=== PATIENT | male | born 1925 | race Caucasian/White ===

== ENCOUNTER 2016-06-13 17:41 | Emergency (ER) | payer MEDICARE, MEDICAID ==
[~2016-06-13] VITALS: Ht 170.2 cm; Wt 77.3 kg
[2016-06-13 17:46] VITALS: Ht 170.2 cm; Wt 77.3 kg
[2016-06-13 17:52] VITALS: TEMP 97.9
[2016-06-13] MEDS ORDERED: CLON0.5T4 PO (18:12)
[2016-06-13] MEDS ORDERED: NIT4 SL (18:12)
[2016-06-13] MEDS ORDERED: FURO20TA3 PO (18:13)
[2016-06-13] MEDS ORDERED: COLC0.6T6 PO (18:13)
[2016-06-13] MEDS ORDERED: DICL100G37 TOP (18:14)
[2016-06-13] MEDS ORDERED: TIMO5DRO30 BOTH EYES (18:14)
[2016-06-13] MEDS ORDERED: CLOP75TA4 PO (18:15)
[2016-06-13] MEDS ORDERED: TRAM50TA2 PO (18:15)
[2016-06-13] MEDS ORDERED: TAMS0.4C2 PO (18:15)
[2016-06-13] MEDS ORDERED: CELE200C PO (18:16)
[2016-06-13] MEDS ORDERED: LIDO700A6 TP (18:16)
[2016-06-13] MEDS ORDERED: VALS80TA2 PO (18:17)
[2016-06-13] MEDS ORDERED: DUTA0.5C PO (18:17)
[2016-06-13] MEDS ORDERED: ESOM40CA PO (18:17)
[2016-06-13] MEDS ORDERED: ROSU5TAB5 PO (18:18)
[2016-06-13] MEDS ORDERED: SOLI5TAB5 PO (18:18)
[2016-06-13] MEDS ORDERED: RANO500T2 PO (18:18)
[2016-06-13] MEDS ORDERED: MEMA7CAP PO (18:19)
[2016-06-13] MEDS ORDERED: LINA145C PO (18:19)
[2016-06-13] MEDS ORDERED: VORT20TA PO (18:19)
[2016-06-13] MEDS ORDERED: OLOP2.5D5 OP (18:20)
[2016-06-13] MEDS ORDERED: IBUPROFEN 600 MG TAB PO ONE (18:30)
[2016-06-13] MEDS ORDERED: DIPHTH/TET/ACEL PERTUSS (ADULT) 0.5 ML VIAL IM* ONE (18:30)
[2016-06-13] MEDS ORDERED: NEOMYC/POLYMYX/BACIT 30 GM OINT TOP ONE (18:30)
--- NOTE | 2016-06-13 18:52 | RADRPT ---
PROCEDURE: CT brain without contrast CLINICAL INDICATION: Post traumatic headaches. Possible intracranial hemorrhage TECHNIQUE: A CT of the brain was performed utilizing axial sections from the skull base through th e vertex without contrast. Sagittal and coronal images were also reformatted. The exam CTDIvol = 44. 81 mGy and DLP = 720.23 mGy-cm. COMPARISON: None available FINDINGS: No acute intracranial hemorrhage is identified. There is no mass effect or midline shift. No extra -axial fluid collection is seen. The ventricles and sulci are within normal limits for size and con figuration given the the patient's provided age of 89 years with generalized associated age appropri ate tissue loss. The density of the brain is within normal limits. Rausch-white differentiation is p reserved. Broad-based frontal scalp hematoma is present. The osseous structures are unremarkable. The mastoi d air cells and visualized paranasal sinuses are clear. RPTAT:HJJR IMPRESSION: 1. Broad-based frontal scalp hematoma without associated fracture or acute intracranial abnormality. 2. Generalized age-appropriate cerebral tissue loss. Physician Arelis Date Time Electronically viewed and signed by Physician Arelis on 06/13/2016 18:52 /
--- NOTE | 2016-06-13 19:18 | RADRPT ---
PROCEDURE: XR Chest. CLINICAL INDICATION: Trauma. Chest pain. TECHNIQUE: Single frontal view. COMPARISON: None. FINDINGS: The lungs are clear. The heart size is normal. There is no pleural effusion. There is no pneumothorax. IMPRESSION: 1. Normal chest radiograph. RPTAT: QQ .Octavio Gresham MD, MD Date Time Electronically viewed and signed by .Octavio Gresham MD, on 06/13/2016 19:17 .R/
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
[2016-06-13] MEDS ORDERED: IBUP-1542 PO (19:23)
[2016-06-13 19:31] VITALS: BP 147/73; PULSE 66; RESP 16
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
== END 2016-06-13 20:20 | disposition home or self-care (01) ==
LOC: E/R 17:41
DX: S09.90XA Unspecified injury of head, initial encounter (principal); S00.83XA Contusion of other part of head, initial encounter; I10 Essential (primary) hypertension; W18.39XA Other fall on same level, initial encounter; Y92.9 Unspecified place or not applicable; Z23 Encounter for immunization
CPT/HCPCS: 70450; 71010; 90471; 90715